=== PATIENT | male | born 1980 | race Caucasian/White ===

== ENCOUNTER → 2017-01-30 | Outpatient (CLI) | payer OTHER ==
[2017-01-30 08:11] LABS: BASOPHILS # (AUTO) 0.1 10^3/uL (0.0-0.1); BASOPHILS % (AUTO) 1 % (0-10); EOSINOPHILS # (AUTO) 0.3 10^3/uL (0.0-0.3); EOSINOPHILS % (AUTO) 2 % (0-10); LYMPHOCYTES % (AUTO) 26 % (12-44); MEAN CORPUSCULAR HEMOGLOBIN 30 PG (25-34); MEAN CORPUSCULAR HGB CONC 34 G/DL (32-36); MEAN CORPUSCULAR VOLUME 87 FL (80-99); MEAN PLATELET VOLUME 9.2 FL (7.4-10.4); MONOCYTES % (AUTO) 7 % (0-12); NEUTROPHILS # (AUTO) 9.8 X 10^3 (1.8-7.8); NEUTROPHILS % (AUTO) 65 % (42-75); PLATELET COUNT 293 10^3/uL (130-400); RED BLOOD COUNT 4.91 10^6/uL (4.35-5.85); RED CELL DISTRIBUTION WIDTH 13.2 % (10.0-14.5); WHITE BLOOD COUNT 15.2 10^3/uL (4.3-11.0)
[2017-01-30 08:32] LABS: SODIUM 139 MMOL/L (135-145)
[2017-01-30 08:33] LABS: ALANINE AMINOTRANSFERASE 18 U/L (0-55); ALBUMIN 4.2 GM/DL (3.2-4.5); ANION GAP 10 MMOL/L (5-14); ASPARTATE AMINO TRANSFERASE 14 U/L (5-34); BILIRUBIN,TOTAL 0.3 MG/DL (0.1-1.0); BLOOD UREA NITROGEN 14 MG/DL (7-18); BUN/CREATININE RATIO 17; CALCIUM 9.1 MG/DL (8.5-10.1); CARBON DIOXIDE 22 MMOL/L (21-32); CHLORIDE 107 MMOL/L (98-107); CHOLESTEROL 132 MG/DL (< 200); CREATININE SERUM 0.82 MG/DL (0.60-1.30); DIRECT LDL 101 MG/DL (1-129); GFR ESTIMATED > 60; GLUCOSE 103 MG/DL (70-105); POTASSIUM 3.2 MMOL/L (3.6-5.0); TOTAL PROTEIN 7.6 GM/DL (6.4-8.2); TRIGLYCERIDES 94 MG/DL (<150); VLDL CHOLESTEROL 19 MG/DL (5-40)
[2017-01-30 08:50] LABS: BASOPHILS % (MANUAL) 1 %; EOSINOPHILS % (MANUAL) 1 %; LYMPHOCYTES % (MANUAL) 23 %; NEUTROPHILS % (MANUAL) 64 %
== END ==
LOC: LAB 07:45
PROVIDERS: ATTEND Family Medicine
DX: I10 Essential (primary) hypertension (principal); E66.01 Morbid (severe) obesity due to excess calories; Z13.1 Encounter for screening for diabetes mellitus
CPT/HCPCS: 36415; 80053; 80061; 83036; 85007; 85027

== ENCOUNTER → 2017-06-09 | Outpatient (CLI) | payer OTHER ==
[2017-06-09 14:32] LABS: BILIRUBIN,URINE NEGATIVE (NEGATIVE); CLARITY,URINE CLEAR; COLOR,URINE YELLOW; GLUCOSE, URINE (UA) NEGATIVE (NEGATIVE); KETONES,URINE NEGATIVE (NEGATIVE); LEUKOCYTE ESTERASE ,URINE 3+ (NEGATIVE); NITRITE,URINE NEGATIVE (NEGATIVE); PH,URINE 7 (5-9); PROTEIN,URINE NEGATIVE (NEGATIVE); UROBILINOGEN,URINE NORMAL (NORMAL)
[2017-06-09 14:40] LABS: BACTERIA,URINE TRACE /HPF; RBC,URINE RARE /HPF
== END ==
LOC: LAB 14:10
PROVIDERS: ATTEND Family Medicine
DX: R30.0 Dysuria (principal)
CPT/HCPCS: 36415; 81000; 87077; 87088; 87186; 87491; 87591

== ENCOUNTER 2017-12-08 15:48 | Outpatient (RCR) | payer OTHER | END 2017-12-22 09:35 | disposition home or self-care (01) | PROVIDERS: ATTEND Family Medicine | DX: M25.512 Pain in left shoulder (principal); M54.2 Cervicalgia; R29.898 Other symptoms and signs involving the musculoskeletal system ==

== ENCOUNTER → 2018-03-03 | Outpatient (CLI) | payer OTHER ==
[~2018-03-03] MED LIST: BARIUM SUSPENSION 105% (LIQUID POLIBAR PLUS) 240 ML/DOSE PO ONE; BARIUM SUSPENSION 60% (LIQUID EZ PAQUE) 240 ML DOSE PO ONE
--- NOTE | 2018-03-03 14:08 | Diagnostic Imaging Report ---
INDICATION: Reflux. Patient presents today prior to undergoing gastric sleeve surgery. The patient ingested effervescent crystals as well as thick barium and imaging of the esophagus, stomach and proximal small bowel is performed. 49 seconds of fluoroscopy was utilized. Overall study is limited due to the patient only being able to be imaged in the upright position. Patient exceeded the table limits and weight. Esophagus has a smooth contour. No mass or stricture is seen. No gastroesophageal reflux or hiatal hernia was demonstrated. Limited images of the stomach are unremarkable. There is prompt emptying into the small bowel. IMPRESSION: Unremarkable limited upper GI exam. Dictated by: Dictated on workstation # [id number]
== END ==
LOC: RAD 10:12
PROVIDERS: ATTEND Surgery
DX: Z01.818 Encounter for other preprocedural examination (principal); K21.9 Gastro-esophageal reflux disease without esophagitis
CPT/HCPCS: 74241

== ENCOUNTER → 2018-07-08 | Outpatient (REF) ==
--- NOTE | 2018-07-08 12:41 | Diagnostic Imaging Report ---
Clinical indication: Patient fell on ice and complains of pain in lateral left ankle and posterior left knee. Patient fell about 9 hours ago. Exam: X-ray of the left knee, 3 views. Comparison: None. Findings: There is no acute fracture or dislocation. There is no significant knee effusion. There is minimal spurring involving the tricompartmental region. Impression: Minimal left knee degenerative changes with no acute fracture or dislocation. Dictated by: Dictated on workstation # [id number]
--- NOTE | 2018-07-08 12:42 | Diagnostic Imaging Report ---
Clinical indication: Patient complains of pain on lateral left ankle and posterior left knee after fall on ice approximately 9 hours ago. Exam: X-ray of the left ankle, 3 views. Comparison: None. Findings: X-ray of the left ankle shows no acute fracture or dislocation. Ankle mortise and syndesmotic joints unremarkable. There is moderately hypertrophic calcaneal spurs at the plantar and Achilles attachment. There is mild spurring of the lateral aspect of the medial malleolus. Spurring of the dorsal midfoot. Impression: 1: There is no acute fracture or dislocation. 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 Dictated by: Dictated on workstation # [id number]
== END | disposition home or self-care (01) ==
LOC: RAD 11:41
PROVIDERS: ATTEND Family Medicine
CPT/HCPCS: 73562; 73610